=== PATIENT | male | born 1975 | race Caucasian/White ===

== ENCOUNTER 2016-09-11 05:27 | Inpatient (IN) | payer BC ==
[~2016-09-11] VITALS: Ht 175.3 cm; Wt 93.6 kg
[~2016-09-11 05:27] MED LIST: CITALOPRAM HBR20 MG PO; HYDROCODON-ACE1 EAC7 PO
[2016-09-11 06:23] VITALS: BP 115/67
== END 2016-09-11 18:07 | disposition home or self-care (01) | DRG 460 ==
LOC: 2SOUTH 05:27 → 3EAST 13:58 → 2SOUTH 15:35 → 3EAST 18:07
PROC: 0SG30A1 (ICD-10-PCS; principal; 2016-09-11)
DX: M43.17 Spondylolisthesis, lumbosacral region (principal); M48.06 Spinal stenosis, lumbar region; M51.36 Other intervertebral disc degeneration, lumbar region; M54.16 Radiculopathy, lumbar region
CPT/HCPCS: 72100; 76000; 86900; 86901; C1713; J0131; J0690; J1100; J1170; J2250; J2405; J3010; J3370; J3480; S0020